=== PATIENT | male | born 1950 | race Hispanic/Latino ===

== ENCOUNTER 2025-05-03 07:48 | Day surgery (SDC) | payer OTHER ==
[2025-05-01 12:37] LABS: INR 1.08 (0.85-1.15)
[2025-05-01 12:52] VITALS: BP 120/64; PULSE 68; RESP 17; TEMP 97.7
--- NOTE | 2025-05-01 13:17 | EKG ---
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
[2025-05-03] VITALS (12 sets, daily range): BP systolic 126–152; BP diastolic 72–79; PULSE 61–71; RESP 12–18; TEMP 97.2–97.7
[~2025-05-03] VITALS: Ht 167.6 cm; Wt 81.9 kg
[~2025-05-03 07:48] MED LIST: ASPI-1443 PO; DAPA5TAB PO; LISI10TA24 PO; METF-444 PO; MVI PO; SIMV-46 PO; SITA50TA PO
[2025-05-03] MEDS: LACTATED RINGERS 1000ML 0 ML IV ONE (08:03)
[2025-05-03] MEDS: 0.9%NACL 1000ML 1,000 ML IV ONE (08:04)
[2025-05-03] MEDS ORDERED: LIDOCAINE PF 100MG/5ML (2%) SYRINGE 5ML ONE (08:30)
--- NOTE | 2025-05-03 09:53 | HMCIMG ---
ELBOW 2VWS RT REASON: ORIF RIGHT ELBOW, HARWARE REMOVAL, SX TECHNIQUE: 4 views were obtained. FINDINGS: Patient for C-arm images intraoperative demonstrate undergoing hardware removal from elbow.. Fluoroscopy time 0.98 second. IMPRESSION: Details of the finding in the operative report
[2025-05-03] MEDS ORDERED: ACET-2079 PO (09:55)
--- NOTE | 2025-05-03 10:15 | OP ---
Operative Note: DATE OF PROCEDURE: 05/03/25 SURGEON: ANABELL DODSON MD LONGWALL SHEARER OPERATOR: Chantale Rosado ANESTHESIA: General ANESTHESIOLOGIST/JEWELRY DRILL OPERATOR: Temo Chapa CRNA PREOPERATIVE DIAGNOSIS: Right elbow symptomatic hardware and olecranon bursitis POSTOPERATIVE DIAGNOSIS: Right elbow symptomatic hardware and olecranon bursitis PROCEDURE: Right elbow hardware removal and olecranon bursectomy ESTIMATED BLOOD LOSS: 5 cc INDICATIONS: 74-year-old male proximally 45 years status post open reduction internal fixation of right olecranon fracture with screws in a tension band wire. Patient reported posterior swelling to the elbow with pain on presentation to clinic. He was noted on x-ray to have a broken his tension band wire with a part of it pointed towards the posterior aspect of the elbow. After discussion of the risks, benefits, and alternatives, the patient voluntarily agreed to undergo the aforementioned procedure. DESCRIPTION OF PROCEDURE: Patient was properly identified in the preoperative holding area. Surgical site marking was verified and surgery consent reviewed. The patient was then taken to the operating room and placed in supine position on the OR table. After induction of general anesthesia, preoperative antibiotics were given, all bony prominences were well-padded, and a well padded tourniquet was applied but not inflated at this time. The right upper extremity was then prepped and draped in usual sterile fashion. Surgical timeout was done verifying correct surgery, side, site, and location to be performed. We then began the procedure by localizing the symptomatic wire under fluoroscopy . The limb was then exsanguinated and the tourniquet was inflated to 250 mm Hg. We then reopened the proximal portion of the posterior incision using a 15 blade close to where the symptomatic wire was proud. We ended up opening about 5 cm in length. Here there was significantly hypertrophic olecranon bursa. We went ahead and began shelling out this tissue to perform a bursectomy and ultimately cut into the tissue. We had to cut into the bursa to be able to visualize the prominent wire. The bursal tissue was passed off to the back table. In removing this tissue, we uncovered the other end of the broken tension band wire. We removed the soft tissue overlying this wire back to the point where it inserted into the bone. This wire was then trimmed. We then removed the overlying soft tissue from the symptomatic end of the tension band wire using a 15 blade. Once we can no longer see the symptomatic wire above the bone, we then used a heavy needle train driver to roll up the tension band and pull this out of the remaining bone and soft tissue. This was done successfully with removal of the wire. We verified under AP and lateral fluoroscopic views that no further symptomatic hardware remained. We then thoroughly irrigated out the wound with normal saline. Surrounding tissues were infused with 0.25% Marcaine. We then closed the wound using a 2-0 Vicryl in subcutaneous tissues. 3-0 nylon was used for the skin. Sterile soft dressing applied using Xeroform 4x4s ABDs and Sunday wraps. The tourniquet was then deflated, the patient was awakened from anesthesia, and taken to the recovery room in stable condition. ANABELL DODSON MD May 03, 2025 10:15
--- NOTE | 2025-05-03 10:44 | NUR ---
PT ARRIVED TO DAY #3 CAOX 4 VSS NAD. PT STATING HE IS WANTING TO LEAVE AND IS ABLE TO DRIVE HOME, I DID MENTION TO HIM HE SHOULD NOT DRIVE X 24 HOURS. SECURITY CALLED FOR PT BELONGINGS PATIENTS CALLED TO COME PICK HIM UP. SHE ALSO ASKED IF THE PATIENT CAN DRIVE I TOLD HER HE CAN NOT DRIVE FOR 24 HOURS. SHE THEN TOLD ME SHE IS COMING FOR HIM. AFTER A FEW MINUTES EVS EMPLOYEE CAME AND TOLD ME THE PATIENT IS NO LONGER IN THE ROOM. PT ENDED UP LEAVING WITHOUT HIS INSTRUCTIONS. NO INSTRUCTIONS GIVEN TO PT OR SPOUSE.
== END 2025-05-03 11:40 | disposition home or self-care (01) ==
LOC: DAH 07:48
PROVIDERS: ATTEND Student in an Organized Health Care Education/Training Program
DX: T84.84XA Pain due to internal orthopedic prosthetic devices, implants and grafts, initial encounter (principal); M70.21 Olecranon bursitis, right elbow; Z88.5 Allergy status to narcotic agent; I10 Essential (primary) hypertension; E78.5 Hyperlipidemia, unspecified; E11.9 Type 2 diabetes mellitus without complications; Z79.84 Long term (current) use of oral hypoglycemic drugs; Z79.899 Other long term (current) drug therapy; Z79.01 Long term (current) use of anticoagulants; Y82.8 Other medical devices associated with adverse incidents
CPT/HCPCS: 85610; 85730; 36415; 93005; 24105; 20680; 73070; 82948 ×2; A4663; A4649; J3010; J7030; J0665 ×2; J2003; J3490; J2704; J2405; J0690 ×2; A6223; A5120; A4215; A4223; A4222; A4221; A4600; J7120